=== PATIENT | male | born 1980 | race Caucasian/White ===

== ENCOUNTER → 2016-06-08 | Outpatient (CLI) | payer OTHER ==
[~2016-06-08] MED LIST: BENTYL10 MG PO; BENTYL20 M1 PO; DOXYCYCLINE150 MG; FIORICET 50-321 EACH PO; LORATADINE PO; PHENERGAN25 MG PO; PROTONIX PO; VOLTAREN75 MG PO; ZANTAC150 MG PO; ZOFRAN8 MG PO
--- NOTE | ~2016-06-08 | CR236 ---
[facility] A Service of [facility] RADIOLOGY TEXT RESULTS PATIENT: EMILIA CASTELLANOS LOCATION: [facility] : [birth year] UNIT #: [id number] AGE: [address]: Hansel Dyer MD SEX: M ORDER DR: [id number] [facility] [address] [facility]. [place], [place] [address] [id number] O MR#: [id number] Acc #: [id number] NAME: EMILIA CASTELLANOS : 1980 SEX: M STUDY DATE/TIME: 06/08/2016 14:06 UNIT: [facility] ROOM: STUDY DESCRIPTION: CR Small Bowel Sbft W Films Attending Physician: Hansel Dyer M.D. Referring Physician: Hansel Dyer M.D. Ordering Physician: Hansel Dyer M.D. Primary Care Physician: Avril Peoples M.D. MEDICAL IMAGING REPORT This report is preliminary unless electronic signature is present EXAM Small bowel follow through INDICATION Mr. Castellanos is a 35-year-old man with a history of abdominal pain, diarrhea, weight loss and pain. This been present for 5 years. He reports he had a recent abnormal CT scan which showed an abnormal segment of small bowel. 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 Bowel gas pattern is nonobstructive. The patient was administered a cup of barium and at 30 minutes he was noted to already have contrast material within the colon. At this point fluoroscopic spot images were obtained. Patient's small bowel appears unremarkable. I do not see any evidence of stricture although full assessment of the more proximal bowel is somewhat limited. Contrast has already passed into the colon. Small bowel fold pattern appears unremarkable. There is somewhat limited visualization of the terminal ileum, but I certainly did not see any evidence of stricture. The colon also was normal in appearance. Patient's appendix did not opacify on this examination. Total fluoroscopy time was 0.7 minutes and a total of 8 fluoroscopic spot images were obtained. Two overhead images were obtained. IMPRESSION The patient's small bowel transit time was less than 30 minutes which is very rapid. Exact significance is uncertain. Certainly I did not see any abnormal appearance to the bowel or colon to suggest active enteritis or colitis. No strictures or fistulae were identified and the small bowel fold pattern appears normal. If there is concern for inflammatory bowel disease, MR enterography would be test of choice in this 35-year-old [facility] A Service of [facility] RADIOLOGY TEXT RESULTS PATIENT: EMILIA CASTELLANOS LOCATION: [facility] #: [id number] : [birth year] UNIT #: [id number] AGE: [address]: Hansel Dyer MD SEX: M ORDER DR: patient. Dictated by... Xin Henry M.D. THIS IS AN ELECTRONICALLY VERIFIED REPORT Xin Henry M.D. at 06/09/2016 5:24 PM JOSELIN/tenisha TD: 06/09/2016 11:59 JOB #: [id number] MEDICAL IMAGING REPORT COPY
== END | disposition home or self-care (01) ==
LOC: CRAD 12:38
DX: R10.9 Unspecified abdominal pain (principal); R93.5 Abnormal findings on diagnostic imaging of other abdominal regions, including retroperitoneum
CPT/HCPCS: 74250

== ENCOUNTER 2016-07-14 14:20 | Emergency (ER) | payer OTHER ==
--- NOTE | ~2016-07-14 | EKG ---
PATIENT: EMILIA HAYWOOD UNIT #: [id number] Ventricular Rate: 94 BPM Atrial Rate: 178 BPM QRS Duration: 82 ms Q-T Interval: 324 ms QTC Calculation(Bezet): 405 ms P [place]: 80 degrees Calculated R [place]: 80 degrees Calculated T [place]: 71 degrees Diagnosis Line: Normal sinus rhythm Diagnosis Line: RSR' pattern in V1 Diagnosis Line: Normal ECG Diagnosis Line: No previous ECGs available Diagnosis Line: Confirmed by MIGNON SANCHEZ MD ([id number]) on 07/14/2016 Diagnosis Line: 7:24:01 PM INTERPRETING MD: LAURA CALERO
--- NOTE | ~2016-07-14 | CR72 ---
[facility] A Service of [facility] RADIOLOGY TEXT RESULTS PATIENT: EMILIA HAYWOOD LOCATION: [facility] : 84 UNIT #: [id number] AGE: [address]: Ronnie Hughes MD SEX: M ORDER DR: [id number] [place] [id number] [facility]. [place], [place] [address] [id number] MR#: [id number] Acc #: [id number] NAME: EMILIA HAYWOOD : 1980 SEX: M STUDY DATE/TIME: 07/14/2016 15:57 UNIT: [facility] ROOM: STUDY DESCRIPTION: CR Chest Single View Portable Attending Physician: Ronnie Hughes M.D. Ordering Physician: Ronnie Hughes M.D. Primary Care Physician: Avril Peoples M.D. MEDICAL IMAGING REPORT This report is preliminary unless electronic signature is present EXAM AP radiograph of chest. DATE OF EXAM 07/14/2016 HISTORY Chest pain. Mid-sternal chest pain began today. FINDINGS AP radiograph of chest presented. COMPARISON 04/22/2016 FINDINGS Heart and mediastinum normal in size and contour. The lungs are well inflated and clear. No pleural effusion or pneumothorax. No evidence of acute pulmonary disease. Bony structures unremarkable. Metallic density incompletely visualized superimposed over the left neck soft tissues, favored to be extrinsic to the patient and likely some form of jewelry. Correlate with clinical exam. Dictated by... Santiago Berkowitz M.D. THIS IS AN ELECTRONICALLY VERIFIED REPORT Santiago Berkowitz M.D. at 07/16/2016 10:42 PM Elisa TD: 07/14/2016 21:31 JOB #: [id number] [facility] A Service [facility] RADIOLOGY TEXT RESULTS PATIENT: EMILIA HAYWOOD LOCATION: [facility] : 84 UNIT #: [id number] AGE: [address]: Ronnie Hughes MD SEX: M ORDER DR: MEDICAL IMAGING REPORT Page 1 of 1 COPY
--- NOTE | ~2016-07-14 | EKG ---
PATIENT: EMILIA HAYWOOD UNIT #: [id number] Ventricular Rate: 85 BPM Atrial Rate: 85 BPM P-R Interval: 148 ms QRS Duration: 90 ms Q-T Interval: 342 ms QTC Calculation(Bezet): 406 ms P [place]: 71 degrees Calculated R [place]: 65 degrees Calculated T [place]: 58 degrees Diagnosis Line: Normal sinus rhythm Diagnosis Line: Normal ECG Diagnosis Line: Diagnosis Line: Confirmed by MIGNON SANCHEZ MD ([id number]) on 07/14/2016 Diagnosis Line: 7:24:09 PM INTERPRETING MD: LAURA CALERO
[2016-07-14 14:02] LABS: BASOPHIL% 0.3 % (0-2.5); DIFF IND NO; EOSINOPHIL% 0.6 % (0.0-7.0); HEMATOCRIT 41.2 % (38.0-50.0); HEMOGLOBIN 14.4 gm/dL (13.0-16.0); LYMPHOCYTE# 1.1 X10e3 (1.0-3.5); LYMPHOCYTE% 25.6 % (17.0-45.0); MEAN CELL VOLUME 82.9 FL (83-96); MEAN CORPUSCULAR HEMOGLOBIN 28.8 PG (28-34); MEAN CORPUSCULAR HGB CONC 34.8 g/dL (30-36); MEAN PLATELET VOLUME 7.9 FL (6.5-11.5); MONOCYTE# 0.3 X10e3 (0-1.0); MONOCYTE% 7.5 % (3.0-12.0); NEUTROPHIL# 2.9 X10e3 (1.5-7.1); PLATELET COUNT 291 X10e3 (140-420); RED BLOOD COUNT 4.98 X10e (3.90-5.60); RED CELL DISTRIBUTION WIDTH 12.1 % (11.0-15.5); WHITE BLOOD COUNT 4.4 X10e3 (4.0-10.5)
[2016-07-14 14:12] LABS: POC - CKMB <1.0 ng/mL (0.0-7.9); POC - TROPONIN <0.05 ng/mL (<=0.05)
[2016-07-14 14:24] LABS: ALBUMIN SERUM 4.7 g/dL (3.5-5.0); BILIRUBIN, DIRECT 0.1 mg/dL (0.0-0.2); BILIRUBIN,INDIRECT 0.5 mg/dL (0.0-0.9); BILIRUBIN,TOTAL 0.6 mg/dL (0.2-2.0); BUN/CREATININE RATIO 28.75; CALCIUM SERUM 9.8 mg/dL (8.4-10.2); CREATININE SERUM 0.8 mg/dL (0.6-1.4); GLOM FILT RATE Estimated 116.6 mL/min (>60); PROTEIN TOTAL SERUM 8.2 g/dL (6.0-8.3)
[2016-07-14 15:35] LABS: POC - CKMB <1.0 ng/mL (0.0-7.9); POC - TROPONIN <0.05 ng/mL (<=0.05)
== END 2016-07-14 16:47 | disposition home or self-care (01) ==
LOC: CED 14:20
PROVIDERS: Emergency Medicine
DX: R07.89 Other chest pain (principal); F41.9 Anxiety disorder, unspecified
CPT/HCPCS: 36415; 71010; 80048; 80076; 82553; 83735; 84484; 85025; 85379; 93005; 99284